=== PATIENT | male | born 1990 | race Caucasian/White ===

== ENCOUNTER 2016-04-29 16:49 | Emergency (ER) | payer OTHER ==
[~2016-04-29] VITALS: Ht 177.8 cm; Wt 117.9 kg
[~2016-04-29 16:49] MED LIST: ALBU17AE26
[2016-04-29 17:18] VITALS: BP 142/100; PULSE 68; RESP 16; TEMP 96.9; O2SAT 97
--- NOTE | 2016-04-29 19:15 | NUR ---
Received Pt report from triage nurse. Will assess pt.
--- NOTE | 2016-04-29 19:20 | NUR ---
Pt reports he has been experiencing 4/10 RLQ abdominal pain since earlier today. Pt reports also having nausea, and a little pain upon urination. Pt denies vomiting. Pt afebrile. Denies SOB or chills. Respirations even and unlabored. No acute distress noted. Will continue to monitor
[2016-04-29] MEDS ORDERED: ONDANSETRON HCL 4 MG/2 ML VIAL IVP ONE (19:30)
[2016-04-29] MEDS ORDERED: NACL 0.9% 1,000 ML IV ONE (19:30)
[2016-04-29] MEDS ORDERED: KETOROLAC TROMETHAMINE 30 MG VIAL IVP ONE (19:30)
[2016-04-29 19:51] LABS: MEAN CORPUSCULAR HEMOGLOBIN 30 pg (27-31); MEAN CORPUSCULAR HGB CONC 34 % (32-36); MEAN CORPUSCULAR VOLUME 88 fL (79.0-98.0); MONOCYTES # (AUTO) 0.8 K/uL (0.0-1.0); RED CELL DISTRIBUTION WIDTH 12.5 % (9.0-15.0)
[2016-04-29 19:53] LABS: BILIRUBIN,URINE NEGATIVE (NEGATIVE); BLOOD, URINE 3+ (NEGATIVE); CLARITY/URINE SL HAZY (CLEAR); COLOR,URINE YELLOW (YELLOW); GLUCOSE,URINE NEGATIVE (NEGATIVE); KETONES,URINE NEGATIVE (NEGATIVE); LEUKOCYTE ESTERASE ,URINE NEGATIVE (NEGATIVE); NITRITE, URINE NEGATIVE (NEGATIVE); PROTEIN URINE TRACE (NEGATIVE); UROBILINOGEN,URINE 0.2 (0.2-1.0)
[2016-04-29 20:01] LABS: CALCIUM 9.2 mg/dL (8.4-11.0); CREATININE 1.15 mg/dL (0.55-1.30); POTASSIUM 4.5 mmol/L (3.5-5.1)
[2016-04-29 20:08] LABS: BASOPHILS # (AUTO) 0.1 K/uL (0.0-0.2); BASOPHILS % (AUTO) 0.9 % (0.0-2.0); EOSINOPHILS # (AUTO) 0.4 K/uL (0.0-0.4); EOSINOPHILS % (AUTO) 5.4 % (0.0-4.0); HEMATOCRIT 46.8 % (36-54); HEMOGLOBIN 15.9 g/dL (14.0-18.0); LYMPHOCYTES # (AUTO) 1.4 K/uL (1.0-5.5); LYMPHOCYTES % (AUTO) 18.3 % (20.5-51.5); MONOCYTES % (AUTO) 10.5 % (1.7-9.3); NEUTROPHILS # (AUTO) 4.9 K/uL (1.8-7.7); NEUTROPHILS % (AUTO) 64.9 % (40.0-70.0); PLATELET COUNT (AUTO) 212 K/uL (130-430); RED BLOOD CELL COUNT(AUTO) 5.32 MIL/uL (4.2-6.2); WHITE BLOOD COUNT (AUTO) 7.6 K/uL (4.8-10.8)
[2016-04-29 20:12] LABS: TOTAL BILIRUBIN 0.4 mg/dL (0.0-1.0)
[2016-04-29 20:13] LABS: ALBUMIN 4.5 g/dL (3.4-4.8); TOTAL PROTEIN, SERUM 8.8 g/dL (6.4-8.3)
[2016-04-29 20:14] LABS: RBC,URINE 50-80 /HPF (0-3)
[2016-04-29 20:15] LABS: BACTERIA,URINE FEW /HPF (None Seen); MUCUS,URINE 3+ /LPF (None Seen); WBC,URINE 0-3 /HPF (0-3)
[2016-04-29 21:29] VITALS: BP 133/76; PULSE 78; RESP 20; TEMP 97.8; O2SAT 98
--- NOTE | 2016-04-29 21:30 | NUR ---
Patient given written and verbal discharge instructions and verbalizes understanding. ER MD discussed with patient the results and treatment provided. Patient in stable condition. ID arm band removed. IV catheter removed intact and dressing applied, no active bleeding. Rx of Zofran and motrin given. Patient educated on pain management and to follow up with PMD. Pain Scale 4/10. Opportunity for questions provided and answered.
== END 2016-04-29 21:30 | disposition home or self-care (01) ==
LOC: SED 16:49
DX: N23 Unspecified renal colic (principal); J45.909 Unspecified asthma, uncomplicated
CPT/HCPCS: 36415; 74176; 80053; 81000; 85025; 96361; 96374; 96375; 99285; J1885; J2405; J7030